=== PATIENT | female | born 1970 | race Caucasian/White ===

== ENCOUNTER → 2017-12-15 | Outpatient (CLI) | payer OTHER | LOC: M WHC 12:47 | DX: Z12.31 Encounter for screening mammogram for malignant neoplasm of breast (principal); Z98.890 Other specified postprocedural states; Z92.0 Personal history of contraception | CPT/HCPCS: 77067 ==

== ENCOUNTER → 2018-09-24 | Outpatient (CLI) | payer OTHER ==
--- NOTE | 2018-09-24 18:37 | REP ---
LEFT FOREARM, TWO VIEWS: HISTORY: Injury. There is no acute fracture or dislocation. The joint spaces are normal in appearance. IMPRESSION: There is no acute fracture or dislocation. Electronically Signed by Sami Oreilly MD 09/24/2018 06:37 P
--- NOTE | 2018-09-24 18:58 | REP ---
LEFT HAND, FOUR VIEWS: HISTORY: Injury. There is no acute fracture or dislocation. The joint spaces are normal in appearance. IMPRESSION: There is no acute fracture or dislocation. Electronically Signed by Sami Oreilly MD 09/24/2018 06:59 P
== END ==
LOC: M LRY 17:49
PROVIDERS: ATTEND Nurse Practitioner Family
DX: S69.92XA Unspecified injury of left wrist, hand and finger(s), initial encounter (principal); X58.XXXA Exposure to other specified factors, initial encounter; Y92.9 Unspecified place or not applicable

== ENCOUNTER → 2019-10-21 | Outpatient (REF) | payer OTHER | LOC: M LAB REF 13:29 | PROVIDERS: ATTEND Physician Assistant Medical | DX: L02.214 Cutaneous abscess of groin (principal) ==

== ENCOUNTER → 2020-10-25 | Outpatient (CLI) | payer OTHER ==
--- NOTE | 2020-10-25 16:38 | REPMRS ---
Patient History The patient states she has not had a clinical breast exam in over a year. Family history of breast cancer in paternal grandmother. Reductions of both breasts, 2010. Benign stereotactic core biopsy of the right breast, 2005. Took hormonal contraceptives for 10 years. Digital Woman Screen Mammo: October 25, 2020 - Exam #: [id number] Bilateral CC and MLO view(s) were taken. Technologist: Ute Cline, Technologist Prior study comparison: December 15, 2017, digital woman screen mammo performed at [facility]. January 19, 2015, digital woman screen mammo performed at [facility]. January 03, 2014, bilateral bilat screen digital mammo, performed at [facility] ([facility]). FINDINGS: There are scattered fibroglandular densities. The Volpara volumetric breast density category is:B. There are dilated retroareolar breast ducts bilaterally again noted. There is a needle biopsy marker clip in the right breast. There has been no change in the appearance of the mammogram from the prior studies. There is a mild amount of scattered fibroglandular density which is fairly symmetric. There is no interval development of dominant mass, architectural distortion, or grouped microcalcification suggestive of malignancy. 3-D tomosynthesis shows no additional findings. Assessment: BI-RADS/ACR category 2 mammogram. Benign Findings. Recommendation Routine screening mammogram of both breasts in 1 year (for women over age 40). This patient's [facility] Lifetime Breast Cancer Risk is estimated at 13.0 %. This mammogram was interpreted with the aid of an FDA-approved computer-aided dectection system. Electronically Signed By: Eyal Baires MD 10/25/20 [id number]
== END ==
LOC: M WHC 15:48
PROVIDERS: ATTEND Nurse Practitioner Family
DX: Z12.31 Encounter for screening mammogram for malignant neoplasm of breast (principal); Z80.3 Family history of malignant neoplasm of breast; Z98.890 Other specified postprocedural states

== ENCOUNTER → 2021-05-30 | Outpatient (REF) | payer OTHER ==
[2021-05-30 19:08] LABS: LUTEINIZING HORMONE 16.4 mIU/mL
== END ==
LOC: M LAB REF 18:08
PROVIDERS: ATTEND Obstetrics & Gynecology
DX: N92.1 Excessive and frequent menstruation with irregular cycle (principal)

== ENCOUNTER 2021-07-25 08:04 | Outpatient (CLI) | payer OTHER ==
[~2021-07-25] VITALS: Ht 152.4 cm; Wt 73.0 kg
[~2021-07-25 08:04] MED LIST: ALBUTEROL 90 MCG/ACT 8GM HFA INHALER INH PRN; ALBUTEROL SULFATE 2.5 MG/0.5 ML INH NEB SOLN INH PRN; CASIRIVIMAB (REGN10933) 600 MG, IMDEVIMAB (REGN10987) 600 MG in NS 250 ML IV ONE; EPINEPHrine INJ 1 MG/ML 1ML AMP IM PRN; NS 1,000 ML IV SCH; diphenhydrAMINE 50MG/ML VIAL (J1200) IV PRN; methylPREDNISolone 125MG 2ML VIAL IV PRN
[2021-07-25 08:47] VITALS: BP 117/63
[2021-07-25 09:17] VITALS: BP 118/60
[2021-07-25 09:47] VITALS: BP 105/61
[2021-07-25 10:47] VITALS: BP 108/68
== END 2021-07-25 10:47 | disposition home or self-care (01) ==
LOC: M OPCLI4PR 08:04
PROVIDERS: ATTEND Nurse Practitioner Family
DX: U07.1 COVID-19 (principal)

== ENCOUNTER → 2021-10-26 | Outpatient (CLI) | payer OTHER ==
[~2021-10-26] MED LIST changes: -ALBUTEROL 90 MCG/ACT 8GM HFA INHALER INH PRN; -ALBUTEROL SULFATE 2.5 MG/0.5 ML INH NEB SOLN INH PRN; -CASIRIVIMAB (REGN10933) 600 MG, IMDEVIMAB (REGN10987) 600 MG in NS 250 ML IV ONE; -EPINEPHrine INJ 1 MG/ML 1ML AMP IM PRN; +K2 P1TAB PO; -NS 1,000 ML IV SCH; +[UNRECOGNIZED DRUG - OTHER] PO; -diphenhydrAMINE 50MG/ML VIAL (J1200) IV PRN; -methylPREDNISolone 125MG 2ML VIAL IV PRN
== END ==
LOC: M LABSMTC 09:10
PROVIDERS: ATTEND Anesthesiology
DX: Z01.812 Encounter for preprocedural laboratory examination (principal); Z20.822 Contact with and (suspected) exposure to COVID-19

== ENCOUNTER 2021-10-31 06:09 | Day surgery (SDC) | payer OTHER ==
[~2021-10-31] VITALS: Ht 152.4 cm; Wt 77.6 kg
[~2021-10-31 06:09] MED LIST changes: +LR 1,000 ML IV ONE; +ceFAZolin SOD 2 GM in IV 1 EA IV ONE
[2021-10-31 06:54] LABS: HEMATOCRIT 44.6 % (36.0-47.0); HEMOGLOBIN 14.5 g/dl (12.0-15.5); MEAN CORPUSCULAR HEMOGLOBIN 28.2 pg (27.0-33.0); MEAN CORPUSCULAR HGB CONC 32.5 g/dl (32.0-36.5); MEAN CORPUSCULAR VOLUME 86.6 fl (80.0-96.0); PLATELET COUNT, AUTOMATED 274 10^3/uL (150-450); RED BLOOD COUNT 5.15 10^6/uL (4.00-5.40); WHITE BLOOD COUNT 4.9 10^3/uL (4.0-10.0)
[2021-10-31 07:14] LABS: BLOOD UREA NITROGEN 12 MG/DL (7-18); CALCIUM LEVEL 9.6 MG/DL (8.5-10.1); CARBON DIOXIDE LEVEL 28 MEQ/L (21-32); CHLORIDE LEVEL 107 MEQ/L (98-107); CREATININE FOR GFR 0.82 MG/DL (0.55-1.30); GLOMERULAR FILTRATION RATE > 60.0 (>51); GLUCOSE, FASTING 94 MG/DL (70-100); POTASSIUM SERUM 3.9 MEQ/L (3.5-5.1); SODIUM LEVEL 140 MEQ/L (136-145)
[2021-10-31] MEDS ORDERED: FLUORESCEIN 10% (100MG/ML) 5 ML VIAL As Ordered ONE (07:14)
[2021-10-31] MEDS ORDERED: BUPIVACAINE HCL 0.25% 30ML VIAL As Ordered ONE (07:14)
[2021-10-31] MEDS ORDERED: ONDANSETRON 4MG/2ML VIAL As Ordered ONE (07:15)
[2021-10-31] MEDS ORDERED: SUGAMMADEX SODIUM 500 MG/5 ML VIAL (BRIDION) As Ordered ONE (07:15)
[2021-10-31] MEDS ORDERED: ROCURONIUM BROMIDE 50 MG/5 ML VIAL As Ordered ONE ×2 (07:15→08:44)
[2021-10-31] MEDS ORDERED: dexameTHASONE 4 MG/ML 1ML VIAL (J1100 PER 1MG) As Ordered ONE (07:15)
[2021-10-31] MEDS ORDERED: propofoL 200 MG/20 ML VIAL As Ordered ONE (07:15)
[2021-10-31] MEDS ORDERED: KETOROLAC 60MG 2ML VIAL As Ordered ONE (07:15)
[2021-10-31] MEDS ORDERED: LIDOCAINE 2% 100MG/5ML SDV (FOR ANES.) As Ordered ONE (07:15)
[2021-10-31] MEDS ORDERED: fentaNYL 100 MCG/2 ML INJECTION As Ordered ONE ×2 (07:16→08:28)
[2021-10-31] MEDS ORDERED: MIDAZOLAM INJ 2MG/2ML VIAL (J2250 PER 1MG) As Ordered ONE (07:16)
[2021-10-31] MEDS ORDERED: LIDOCAINE 5% OINT 30GM TUBE As Ordered ONE (07:23)
[2021-10-31] MEDS ORDERED: LIDOCAINE W/EPINEPHRINE 1% 20ML VIAL As Ordered ONE (08:28)
[2021-10-31] MEDS ORDERED: ePHEDrine SULFATE 25 MG/5 ML(5MG/ML) SYRINGE As Ordered ONE (08:39)
[2021-10-31] MEDS ORDERED: PERC5TAB12 PO (09:29)
[2021-10-31] MEDS ORDERED: LR 1,000 ML IV SCH ×2 (09:45→09:50)
[2021-10-31] MEDS ORDERED: HYDROMORPHONE HCL 0.5 MG/ 0.5 ML SYRINGE (J1170 PER 1) IV PRN (09:45)
[2021-10-31] MEDS ORDERED: ONDANSETRON 4MG/2ML VIAL IV PRN (09:45)
[2021-10-31] MEDS ORDERED: oxyCODONE 5MG TAB PO PRN (09:45)
[2021-10-31] MEDS ORDERED: PERCOCET 5MG/325MG TAB PO PRN (09:50)
[2021-10-31] MEDS: fentaNYL 100 MCG/2 ML INJECTION IV PRN ×2 (10:15→10:24)
[2021-10-31] MEDS: METOCLOPRAMIDE INJ 10MG/2ML VIAL (J2765 PER 1) IV PRN ×2 (11:01→11:03)
[2021-10-31] MEDS ORDERED: SIMETHICONE 80MG CHEW TAB PO SCH (12:00)
[2021-10-31 14:00] VITALS: BP 110/59
[2021-10-31] MEDS ORDERED: IBUPROFEN 800 MG TAB PO SCH (18:00)
== END 2021-10-31 14:39 | disposition home or self-care (01) ==
LOC: M SDC 06:09
PROVIDERS: ATTEND Obstetrics & Gynecology
DX: N92.0 Excessive and frequent menstruation with regular cycle (principal); N83.00 Follicular cyst of ovary, unspecified side; N80.0 Endometriosis of uterus
CPT/HCPCS: 36415; 58571; 80048; 81025; 85027; 86850; 86900; 86901; 88307; J0690; J1100; J1885; J2250; J2405; J2765; J3010; S2900

== ENCOUNTER → 2021-11-13 | Outpatient (REF) | payer OTHER ==
[~2021-11-13] MED LIST changes: -LR 1,000 ML IV ONE; +PERC5TAB12 PO; -ceFAZolin SOD 2 GM in IV 1 EA IV ONE
== END ==
LOC: M LAB REF 16:42
PROVIDERS: ATTEND Obstetrics & Gynecology
DX: R30.0 Dysuria (principal); R31.9 Hematuria, unspecified

== ENCOUNTER → 2023-12-03 | Outpatient (CLI) | payer OTHER | LOC: M RAD 07:41 | PROVIDERS: ATTEND Physician Assistant | DX: S83.282A Other tear of lateral meniscus, current injury, left knee, initial encounter (principal); M71.22 Synovial cyst of popliteal space [Baker], left knee; Y92.9 Unspecified place or not applicable; Y93.9 Activity, unspecified ==

== ENCOUNTER → 2024-03-30 | Outpatient (CLI) | payer OTHER ==
[~2024-03-30] MED LIST changes: +RA B200C PO
== END ==
LOC: M EKG 08:35
PROVIDERS: ATTEND Anesthesiology
DX: Z01.818 Encounter for other preprocedural examination (principal); R00.1 Bradycardia, unspecified

== ENCOUNTER 2024-04-05 14:09 | Day surgery (SDC) | payer OTHER ==
[~2024-04-05] VITALS: Ht 152.4 cm; Wt 87.0 kg
[2024-04-05] MEDS ORDERED: LR 1,000 ML IV SCH ×2 (14:30→16:35)
[2024-04-05] MEDS ORDERED: MIDAZOLAM INJ 2MG/2ML VIAL As Ordered ONE (15:12)
[2024-04-05] MEDS ORDERED: LIDOCAINE 2% 100MG/5ML SDV (FOR ANES.) As Ordered ONE (15:14)
[2024-04-05] MEDS ORDERED: fentaNYL 100 MCG/2 ML INJECTION As Ordered ONE (15:14)
[2024-04-05] MEDS ORDERED: OXYC-517 PO ×2 (15:16→15:22)
[2024-04-05] MEDS ORDERED: ONDA-282 PO (15:17)
[2024-04-05] MEDS ORDERED: CELE1CAP4 PO (15:18)
[2024-04-05] MEDS ORDERED: ACET325C5 PO (15:19)
[2024-04-05] MEDS ORDERED: COLA100C5 PO (15:23)
[2024-04-05] MEDS: ceFAZolin SOD 2 GM in IV 1 EA IV ONE (15:40)
[2024-04-05] MEDS ORDERED: ONDANSETRON 4MG 2ML VIAL As Ordered ONE (15:43)
[2024-04-05] MEDS ORDERED: ACETAMINOPHEN 1000MG 100ML IV BAG As Ordered ONE (15:43)
[2024-04-05] MEDS ORDERED: propofoL 200 MG/20 ML VIAL As Ordered ONE (15:43)
[2024-04-05] MEDS: TRANEXAMIC ACID 100 MG/ML 10ML VIAL As Ordered ONE (15:45)
[2024-04-05] MEDS ORDERED: KETOROLAC 60MG 2ML VIAL As Ordered ONE (15:59)
[2024-04-05] MEDS ORDERED: HYDROmorphone HCL 2MG/ML 1ML VIAL As Ordered ONE (16:09)
[2024-04-05] MEDS: EPINEPHrine 1MG/ML INJ 30ML MD-VIAL As Ordered ONE (16:15)
[2024-04-05] MEDS ORDERED: fentaNYL 100 MCG/2 ML INJECTION IV PRN (16:35)
[2024-04-05] MEDS: ONDANSETRON 4MG 2ML VIAL IV PRN (17:05)
[2024-04-05] MEDS ORDERED: diphenhydrAMINE 50MG/ML VIAL IV PRN (17:40)
[2024-04-05] MEDS ORDERED: oxyCODONE 5MG TAB PO PRN (17:40)
[2024-04-05] MEDS: METOCLOPRAMIDE INJ 10MG/2ML VIAL IV PRN (17:50)
[2024-04-05 19:44] VITALS: BP 142/68; TEMP 97.7; O2SAT 98
== END 2024-04-05 19:54 | disposition home or self-care (01) ==
LOC: M SDC 14:09
PROVIDERS: ATTEND Orthopaedic Surgery
DX: S83.242A Other tear of medial meniscus, current injury, left knee, initial encounter (principal); W19.XXXA Unspecified fall, initial encounter; Y93.9 Activity, unspecified; Y92.9 Unspecified place or not applicable; M94.262 Chondromalacia, left knee
CPT/HCPCS: 29881; J0131; J0171; J0665; J0690; J1100; J1170; J1885; J2250; J2405; J2765; J3010

== ENCOUNTER → 2024-04-16 | Outpatient (CLI) | payer OTHER ==
[~2024-04-16] MED LIST changes: +ACET325C5 PO; +CELE1CAP4 PO; +COLA100C5 PO; +ONDA-282 PO; +OXYC-517 PO
== END ==
LOC: M SOG 08:12
PROVIDERS: ATTEND Physician Assistant
DX: M25.562 Pain in left knee (principal); Z47.89 Encounter for other orthopedic aftercare; Z53.9 Procedure and treatment not carried out, unspecified reason